=== PATIENT | male | born 1990 | race Caucasian/White ===

== ENCOUNTER 2023-07-23 17:12 | Emergency (ER) | payer MEDICAID, OTHER ==
[~2023-07-23] VITALS: Ht 180.3 cm; Wt 71.7 kg
[2023-07-23] MEDS: IV NORMAL SALINE 1000 ML BAG IV ONE (17:57)
[2023-07-23 18:16] LABS: BASOPHILS % (AUTO) 0.4 % (0.0-2.0); EOSINOPHILS # (AUTO) 0.1 K/uL (0.0-0.7); EOSINOPHILS % (AUTO) 1.6 % (0.0-7.0); HEMATOCRIT 45.4 % (36.7-47.1); HEMOGLOBIN 15.2 g/dL (12.5-16.3); LYMPHOCYTES # (AUTO) 2.9 K/uL (0.8-4.8); LYMPHOCYTES % (AUTO) 31.7 % (20.5-51.5); MEAN CORPUSCULAR HEMOGLOBIN 30.1 uug (23.8-33.4); MEAN CORPUSCULAR HGB CONC 34 g/dL (32.5-36.3); MEAN CORPUSCULAR VOLUME 89.7 fL (73.0-96.2); MONOCYTES # (AUTO) 0.5 K/uL (0.1-1.30); MONOCYTES % (AUTO) 5.5 % (0.0-11.0); NEUTROPHILS # (AUTO) 5.6 K/uL (1.8-8.9); NEUTROPHILS % (AUTO) 60.8 % (38.5-71.5); PLATELET COUNT (AUTO) 230 K/uL (152-348); RED BLOOD CELL COUNT(AUTO) 5.06 MIL/uL (4.06-5.63); RED CELL DISTRIBUTION WIDTH 13.4 % (12.1-16.2); WHITE BLOOD COUNT (AUTO) 9.2 K/uL (3.6-10.2)
[2023-07-23 18:17] LABS: CARBON DIOXIDE 28 mmol/L (21-32); CHLORIDE 101 mmol/L (98-107); CREATININE 0.9 mg/dL (0.6-1.3); GLUCOSE 115 mg/dL (74-106); POTASSIUM 4.2 mmol/L (3.5-5.1); SODIUM SERUM 139 mmol/L (136-145); UREA NITROGEN, BLOOD 10 mg/dL (7-18)
[2023-07-23 18:24] LABS: ALANINE AMINOTRANSFERASE 71 U/L (16-63); ALBUMIN 3.6 g/dL (3.4-5.0); ALKALINE PHOSPHATASE 218 U/L (50-136); ASPARTATE AMINOTRANSFERASE 22 U/L (15-37); BILIRUBIN,DIRECT < 0.1 mg/dL (0.0-0.2); BILIRUBIN,TOTAL 0.3 mg/dL (0.2-1.0); LIPASE 20 U/L (16-77); TOTAL PROTEIN, SERUM 8.3 g/dL (6.4-8.2)
[2023-07-23] MEDS ORDERED: SWABABLE VALVE TRANSFER SET EA MC ONE (18:47)
[2023-07-23] MEDS ORDERED: IV NORMAL SALINE 250 ML IV ONE (18:47)
[2023-07-23] MEDS ORDERED: IOHEXOL 300MG/ML 100 ML INFUS..BTL ONE (18:47)
[2023-07-23] MEDS ORDERED: BARIUM SULFATE 450 ML ORAL.SUSP ONE (18:50)
[2023-07-23] MEDS ORDERED: PRED20TA PO (22:05)
[2023-07-23 22:26] VITALS: BP 110/80; TEMP 98; O2SAT 99
== END 2023-07-23 22:27 | disposition home or self-care (01) ==
LOC: ER 17:15
DX: R10.31 Right lower quadrant pain (principal); F11.20 Opioid dependence, uncomplicated
CPT/HCPCS: 99285; 74177; 80076; 80048; 83690; 85025; 36415; 74176; Q9967; J7040; Q9951; A4606; A4663